=== PATIENT | female | born 1985 | race African-American/Black ===

== ENCOUNTER 2017-06-02 12:22 | Emergency (ER) | payer BC ==
[2017-06-02 12:34] VITALS: BP 137/105
[2017-06-02] MEDS ORDERED: Ondansetron ODT TAB* 4 MG PO ONE (14:09)
[2017-06-02] MEDS ORDERED: Loperamide CAP* 2 MG PO ONE (14:10)
--- NOTE | 2017-06-02 14:29 | UC ---
Nausea/Vomiting/Diarrhea HPI - HPI Summary HPI Summary: This is a 32 yo female with h/o migraines and anxiety who presented with c/o n/v /d, heavy menstrual bleeding and abd cramping. She has had a migraine for several weeks that started when a new tenant in her complex moved in and started smoking marajuana that has filled her apartment regularly. This am she started with abd cramping, n/v/d. She had some stool incontinence. She had heavy menstrual bleeding associated with the acute symptoms this am. No fevers. - History of Current Complaint Hx Last Menstrual Period: 02/21/16 <Joseph Rogers - Last Filed: 06/02/17 14:24> <Lauren Hill - Last Filed: 06/02/17 14:37> - History of Current Complaint Chief Complaint: UCGI Stated Complaint: ABDOMINAL PAIN - Allergies/Home Medications Allergies/Adverse Reactions: Allergies Allergy/AdvReac Type Severity Reaction Status Date / Time Adhesive Tape [Paper Tape] AdvReac Rash Verified 03/31/16 14:33 METALS Allergy Mild See Comment Uncoded 03/31/16 14:33 SEASONAL Allergy Mild Congestion Uncoded 03/31/16 14:33 Home Medications: Home Medications Citalopram TAB* [Celexa TAB*] 20 mg PO DAILY 06/02/17 [History Confirmed ] hydrOXYzine HCL TAB* [Atarax 10 MG TAB*] 10 mg PO BEDTIME 06/02/17 [History Confirmed 06/02/17] PMH/Surg Hx/FS Hx/Imm Hx Previously Healthy: No - anxiety, obesity, migraine HAs Other History Of: Negative For: Anticoagulant Therapy - Surgical History Surgical History: Yes Surgery Procedure, Year, and Place: T&A, wisdom teeth, hand surgery - Family History Known Family History: Positive: Hypertension, Diabetes - Social History Alcohol Use: Rare Substance Use Type: None Smoking Status (MU): Never Smoked Tobacco - Immunization History Most Recent Influenza Vaccination: 2012 Most Recent Tetanus Shot: UTD <Joseph Rogers - Last Filed: 06/02/17 14:24> Review of Systems Constitutional: Negative Skin: Negative Eyes: Negative ENT: Negative Respiratory: Negative Cardiovascular: Negative Gastrointestinal: Abdominal Pain, Vomiting, Diarrhea, Nausea Genitourinary: Negative Motor: Negative Neurovascular: Negative Musculoskeletal: Negative Neurological: Negative Psychological: Negative Is Patient Immunocompromised?: No All Other Systems Reviewed And Are Negative: Yes <Joseph Rogers - Last Filed: 06/02/17 14:24> Physical Exam Triage Information Reviewed: Yes Appearance: Well-Appearing Vital Signs: Initial Vital Signs Temp 96.4 F 06/02/17 12:28 Pulse 86 06/02/17 12:28 Resp 18 06/02/17 12:28 BP 137/105 06/02/17 12:28 Pulse Ox 100 06/02/17 12:28 Vital Signs Reviewed: Yes ENT: Positive: Normal ENT inspection Neck exam: Normal Neck: Positive: Supple, Nontender Respiratory: Positive: Chest non-tender, Lungs clear, Normal breath sounds. Negative: Crackles, Rhonchi, Stridor, Wheezing Cardiovascular Exam: Normal Cardiovascular: Positive: RRR Abdomen Description: Positive: Soft. Negative: Nontender - diffuse TTP Bowel Sounds: Positive: Hypoactive Musculoskeletal Exam: Normal Neurological Exam: Normal Psychological Exam: Normal Skin Exam: Normal <Joseph Rogers - Last Filed: 06/02/17 14:24> Vital Signs: Initial Vital Signs Temp 96.4 F 06/02/17 12:28 Pulse 86 06/02/17 12:28 Resp 18 06/02/17 12:28 BP 137/105 06/02/17 12:28 Pulse Ox 100 06/02/17 12:28 <Lauren Hill - Last Filed: 06/02/17 14:37> Naus/Vom/Diarrhea Course/Dx - Course Course Of Treatment: This is a 32 yo female with h/o migraines who presents with c/o persistent migraine, abd cramping, n/v/d. Exam is non-focal. Migraine is related to marajuana smoke exposure and she is working with her landlord on that. The remainder of her symptoms are likely due an acute gastroenteritis. Recommend symptomatic care. - Differential Dx/Diagnosis Differential Diagnoses - Female: Ovarian Cyst, Gastroenteritis (Viral), Colitis Provider Diagnoses: 1. Acute gastroenteritis. 2. Migraine headache <Joseph Rogers - Last Filed: 06/02/17 14:24> <Lauren Hill - Last Filed: 06/02/17 14:37> - Differential Dx/Diagnosis Condition At Discharge: Stable Discharge <Joseph Rogers - Last Filed: 06/02/17 14:24> <Lauren Hill - Last Filed: 06/02/17 14:37> - Discharge Plan Condition: Stable Disposition: HOME Prescriptions: Ondansetron ODT TAB* [Zofran 4 MG Odt TAB*] 4 mg PO Q4H PRN #30 tab.odt PRN Reason: Nausea Patient Education Materials: Migraine Headache (ED), Gastroenteritis (ED) Referrals: Antonia Franklin MD [Primary Care Provider] - 3 Days Additional Instructions: Instructions: 1. Use nausea medication (Zofran) as needed for nausea 2. Follow up with your PCP in the next 3 days if necessary, please proceed to the ER if your symptoms get significantly worse over the next 24-48 hours Attestation Statement User Type: Provider - I was available for consult. This patient was seen by the MISAEL. The patient was not presented to, seen by, or examined by me. -Brandee <Lauren Hill - Last Filed: 06/02/17 14:37>
== END 2017-06-02 14:26 | disposition home or self-care (01) ==
LOC: EDSEX → UCEAST 12:22 → MERGE 12:22 → UCEAST 14:26
DX: G43.909 Migraine, unspecified, not intractable, without status migrainosus (principal); K52.9 Noninfective gastroenteritis and colitis, unspecified; F41.9 Anxiety disorder, unspecified
CPT/HCPCS: 99202; G0463

== ENCOUNTER 2017-11-30 16:53 | Emergency (ER) | payer BC ==
[2017-11-30] MEDS ORDERED: Ketorolac INJ* 30 MG/ML 1 ML VIAL IM ONE (17:18)
[2017-11-30] MEDS ORDERED: Ondansetron ODT TAB* 4 MG PO ONE (17:24)
--- NOTE | 2017-11-30 18:28 | RAD ---
INDICATION: Left rib injury COMPARISON: None TECHNIQUE: Multiple views of the ribs were obtained. FINDINGS: Bones: There is no evidence of acute rib fracture. LUNGS: The lungs are clear. There is no pneumothorax. Pleural spaces: There is no evidence of hemothorax. Other: None IMPRESSION: NEGATIVE EXAMINATION.
--- NOTE | 2017-11-30 18:28 | RAD ---
INDICATION: Left shoulder pain COMPARISON: None TECHNIQUE: Routine views obtained. FINDINGS: The bony structures, joint spaces, and soft tissues are normal for age. IMPRESSION: NEGATIVE EXAMINATION.
--- NOTE | 2017-11-30 18:29 | RAD ---
INDICATION: Left humerus injury COMPARISON: None TECHNIQUE: AP and lateral views were obtained. FINDINGS: The bony structures, joint spaces, and soft tissues are normal for age. IMPRESSION: NEGATIVE EXAMINATION.
--- NOTE | 2017-11-30 18:29 | RAD ---
INDICATION: Left elbow injury COMPARISON: None TECHNIQUE: AP, lateral, and oblique views were obtained. FINDINGS: The bony structures, joint spaces, and soft tissues are normal for age. IMPRESSION: NEGATIVE EXAMINATION.
--- NOTE | 2017-11-30 18:34 | ED ---
Adult Trauma - HPI Summary HPI Summary: 32 female presents with left side pain after fall 3 days ago. She states she slipped and landed on her left side. She denies any loss consciousness. She denies any head injury. She notes left-sided neck pain. She has pain from her left shoulder to her left elbow with ecchymosis. She also admits to left hip pain. She has been able to ambulate. She also admits to left-sided rib pain. She denies any chest pain but admits to shortness of breath when she takes a deep breath. She denies any bowel pain. She's not seeing any blood in her stool. She denies any midline tenderness of her back. She admits to left- sided back pain. She states it feels like a stiffness. She denies any loss of bowel or bladder. She denies any saddle anesthesia. She has been taking Tylenol and Excedrin for pain. She denies any numbness or tingling. - History of Current Complaint Chief Complaint: EDGeneral Stated Complaint: DIFF. BREATHING/FALL Time Seen by Provider: 11/30/17 17:12 Hx Last Menstrual Period: 02/21/16 Pain Intensity: 8 - Allergy/Home Medications Allergies/Adverse Reactions: Allergies Allergy/AdvReac Type Severity Reaction Status Date / Time Adhesive Tape [Paper Tape] AdvReac Rash Verified 11/30/17 16:59 METALS Allergy Mild See Comment Uncoded 11/30/17 16:59 SEASONAL Allergy Mild Congestion Uncoded 11/30/17 16:59 PMH/Surg Hx/FS Hx/Imm Hx Endocrine/Hematology History: Denies: Hx Anticoagulant Therapy, Hx Diabetes, Hx Thyroid Disease Cardiovascular History: Denies: Hx Hypertension, Hx Pacemaker/ICD Respiratory History: Denies: Hx Asthma, Hx Chronic Obstructive Pulmonary Disease (COPD) GI History: Reports: Other GI Disorders - SEE BELOW Denies: Hx Ulcer History: Denies: Hx Renal Disease Musculoskeletal History: Reports: Hx Scoliosis, Hx Tendonitis - BILAT. TENDONITIS-ACHELIES, Other Musculoskeletal History - MUSCLE PAIN IN UPPER BACK, SHOULDERS & NECK Sensory History: Reports: Hx Contacts or Glasses - GLASSES ON OCCASION Denies: Hx Hearing Aid Opthamlomology History: Reports: Hx Contacts or Glasses - GLASSES ON OCCASION Neurological History: Reports: Hx Headaches, Hx Migraine - CHRONIC HEADACHES Comment Only: Other Neuro Impairments/Disorders - HAS SEEN DR. DAO FOR HEADACHES/HAS BEEN TO PAIN CLINIC-DR. ALFORD Psychiatric History: Reports: Hx Anxiety - ON NO MEDICATION CURRENTLY-BUT HAS BEEN IN THE PAST, Hx Depression - ON NO MEDICATION CURRENTLY-BUT HAS BEEN IN THE PAST Denies: Hx Panic Disorder - Surgical History Surgery Procedure, Year, and Place: T&A, wisdom teeth, hand surgery Hx Anesthesia Reactions: No Infectious Disease History: No Infectious Disease History: Denies: Hx Clostridium Difficile, Hx Hepatitis, Hx Human Immunodeficiency Virus (HIV), Hx of Known/Suspected MRSA, Hx Shingles, Hx Tuberculosis, Hx Known/ Suspected VRE, Hx Known/Suspected VRSA, History Other Infectious Disease, Traveled Outside the [place] in Last 30 Days - Family History Known Family History: Positive: Hypertension, Diabetes - Social History Alcohol Use: Occasionally Hx Substance Use: No Substance Use Type: Reports: None Hx Tobacco Use: No Smoking Status (MU): Never Smoked Tobacco Review of Systems Negative: Fever Negative: Chest Pain Negative: Shortness Of Breath Positive: Myalgia - left hip, neck, rib, arm pain All Other Systems Reviewed And Are Negative: Yes Physical Exam Triage Information Reviewed: Yes Vital Signs On Initial Exam: Initial Vitals Temp Pulse Resp BP Pulse Ox 96.5 F 95 20 145/106 99 11/30/17 16:59 11/30/17 16:59 11/30/17 16:59 11/30/17 16:59 11/30/17 16:59 Vital Signs Reviewed: Yes Appearance: Positive: Well-Appearing Skin: Positive: Warm, Dry Head/Face: Positive: Normal Head/Face Inspection Eyes: Positive: Normal, Conjunctiva Clear ENT: Positive: Pharynx normal Neck: Positive: Other: - No midline tenderness neck, tenderness over left side of back Respiratory/Lung Sounds: Positive: Clear to Auscultation, Breath Sounds Present , Other - Tenderness over left lateral ribs 8 through 10 Cardiovascular: Positive: Normal, RRR Abdomen Description: Positive: Nontender, Soft Bowel Sounds: Positive: Present Musculoskeletal: Positive: Strength/ROM Intact, Other - Left arm ecchymosis over left humerus, tenderness over left shoulder and left elbow. Good pulses, capillary refill less than 2 seconds good well blower strength Neurological: Positive: Normal Psychiatric: Positive: Normal Diagnostics - Vital Signs Vital Signs Temp Pulse Resp BP Pulse Ox 11/30/17 16:59 96.5 F 95 20 145/106 99 - Laboratory Lab Statement: Any lab studies that have been ordered have been reviewed, and results considered in the medical decision making process. - Radiology ribs Xray Interpretation: No Acute Changes Radiology Interpretation Completed By: Radiologist left arm Xray Interpretation: No Acute Changes Radiology Interpretation Completed By: Radiologist Adult Trauma Course/Dx - Course Course Of Treatment: 32 female presents with left side pain after fall 3 days ago. She states she slipped and landed on her left side. She denies any loss consciousness. She denies any head injury. She notes left-sided neck pain. She has pain from her left shoulder to her left elbow with ecchymosis. She also admits to left hip pain. She has been able to ambulate. She also admits to left-sided rib pain. She denies any chest pain but admits to shortness of breath when she takes a deep breath. She denies any bowel pain. She's not seeing any blood in her stool. She denies any midline tenderness of her back. She admits to left-sided back pain. She states it feels like a stiffness. She denies any loss of bowel or bladder. She denies any saddle anesthesia. She has been taking Tylenol and Excedrin for pain. She denies any numbness or tingling. On exam has ecchymosis of the left humerus. Neurovascularly intact. No midline tenderness neck. Full range of motion of hip. Able to ambulate. X-ray arm normal. Tenderness over lateral left ribs. X-ray ribs normal. We will treat with Flexeril for the back shoulder pain. We'll have follow-up with primary. Patient understands agrees with plan. - Diagnoses Differential Diagnosis/HQI/PQRI: Positive: Contusion(s), Fracture, Sprain Provider Diagnoses: Left arm pain, Fall, Rib pain on left side Discharge - Sign-Out/Discharge Documenting (check all that apply): Discharge/Admit/Transfer - Discharge Plan Condition: Good Disposition: HOME Prescriptions: Cyclobenzaprine TAB* [Flexeril 10 MG TAB*] 10 mg PO TID PRN #9 tab PRN Reason: Pain Ondansetron ODT TAB* [Zofran 4 MG Odt TAB*] 4 mg PO Q6H PRN #12 tab.odt PRN Reason: Nausea Patient Education Materials: R.I.C.E. Treatment (ED), Rib Contusion (ED) Forms: *Work Release Referrals: Antonia Franklin MD [Primary Care Provider] - Additional Instructions: Take Tylenol or ibuprofen every 6 hours as needed for pain Take muscle relaxer three times a day for pain Take zofran every 6 hours as needed for nausea Apply ice, rest, elevate Follow up with primary care physician within 5 days Return to ED if develop any new or worsening symptoms - Billing Disposition and Condition Condition: GOOD Disposition: HOME
[2017-11-30 18:51] VITALS: BP 146/93
== END 2017-11-30 18:50 | disposition home or self-care (01) ==
LOC: ED 16:53
DX: M25.512 Pain in left shoulder (principal); M25.522 Pain in left elbow; M25.552 Pain in left hip; R07.81 Pleurodynia; R06.02 Shortness of breath; G43.909 Migraine, unspecified, not intractable, without status migrainosus; F41.9 Anxiety disorder, unspecified; F32.9 Major depressive disorder, single episode, unspecified; Z91.048 Other nonmedicinal substance allergy status
CPT/HCPCS: 96372; 99282; A9270-GY; J1885

== ENCOUNTER 2018-04-15 16:57 | Emergency (ER) | payer BC ==
[2018-04-15] MEDS ORDERED: Ibuprofen TAB* 600 MG PO ONE (20:06)
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
[2018-04-15 22:14] VITALS: BP 0/0
--- NOTE | 2018-04-16 07:56 | RAD ---
Indication: Right ankle injury. 3 views of the right ankle demonstrate soft tissue swelling. No fracture or dislocation is noted. Ankle mortise is intact. Inferior calcaneal spurring is noted. IMPRESSION: Soft tissue swelling without fracture. R0
--- NOTE | 2018-04-16 07:57 | RAD ---
Indication: Right knee pain. 4 views of the right knee demonstrate no fracture. Soft tissue swelling is noted. Joint spaces all well-preserved. No fracture is identified. IMPRESSION: No fracture of the right knee is noted.
--- NOTE | 2018-04-16 07:59 | RAD ---
INDICATION: Right hip injury. COMPARISON: There are no relevant prior studies available for comparison. TECHNIQUE: An AP view of the pelvis and frontal and lateral views of the right hip were obtained. FINDINGS: The bones are in normal alignment. No fracture is seen. Joint spaces appear maintained. There is a T-shaped IUD which projects over the midline in the pelvis. IMPRESSION: NO EVIDENCE FOR FRACTURE, IF THE PATIENT'S SYMPTOMS PERSIST RECOMMEND FOLLOW-UP IMAGING. R0
== END 2018-04-15 20:30 | disposition home or self-care (01) ==
LOC: ED 16:57
DX: M25.511 Pain in right shoulder (principal); M25.571 Pain in right ankle and joints of right foot; Z91.81 History of falling
CPT/HCPCS: 99282; A9270-GY

== ENCOUNTER 2019-06-27 05:59 | Emergency (ER) | payer BC, OTHER ==
[2019-06-27] MEDS ORDERED: Levalbuterol 1.25MG/0.5ML NEB INH ONE (07:32)
--- NOTE | 2019-06-27 09:35 | ED ---
Shortness of Breath - HPI Summary HPI Summary: This patient is a 34-year-old female with a history of asthma presenting to the ED with a 3 day history of cough with production which she describes as "brown and red." She also is complaining of shortness of breath. She does have a history of asthma, however states only has asthma-like symptoms when she becomes sick. She does have an albuterol inhaler at home, however states this gets her heart palpitations and she does not like to use it. Denies fevers, sweats or chills. Endorses diarrhea x 2 days, but denies currently. Denies other symptoms. - History of Current Complaint Chief Complaint: EDShortnessOfBreath Time Seen by Provider: 06/27/19 07:16 Hx Obtained From: Patient Onset/Duration: Sudden Onset Timing: Constant Current Severity: Mild Dyspnea At: Exertion Alleviating Factors: Bronchodilators, Oxygen Associated Signs & Symptoms: Cough (Productive) - Risk Factors Pulmonary Embolism: Negative Cardiac: Negative Pseudomonas: Negative Tuberculosis: Negative - Allergy/Home Medications Allergies/Adverse Reactions: Allergies Allergy/AdvReac Type Severity Reaction Status Date / Time Adhesive Tape [Paper Tape] AdvReac Rash Verified 06/27/19 06:03 METALS Allergy Mild See Comment Uncoded 06/27/19 06:03 SEASONAL Allergy Mild Congestion Uncoded 06/27/19 06:03 Home Medications: Home Medications ALPRAZolam TAB* [Xanax TAB*] 0.25 mg PO Q8H PRN 06/27/19 [History Confirmed 04/07] Albuterol HFA INHALER* [Ventolin HFA Inhaler*] 2 puff INH Q4H PRN 06/27/19 [ History Confirmed 06/27/19] Citalopram TAB* [CeleXA TAB*] 20 mg PO DAILY 06/27/19 [History Confirmed ] Ibuprofen TAB* [Advil TAB*] 200 mg PO Q6H PRN 06/27/19 [History Confirmed ] Levonorgestrel (IUD) (NF) [Mirena (NF)] 20 mcg IU ONCE 06/27/19 [History Confirmed 06/27/19] PMH/Surg Hx/FS Hx/Imm Hx Previously Healthy: Yes Endocrine/Hematology History: Denies: Hx Anticoagulant Therapy, Hx Diabetes, Hx Thyroid Disease Cardiovascular History: Denies: Hx Hypertension, Hx Pacemaker/ICD Respiratory History: Reports: Hx Asthma Denies: Hx Chronic Obstructive Pulmonary Disease (COPD) GI History: Reports: Other GI Disorders - SEE BELOW Denies: Hx Ulcer History: Denies: Hx Renal Disease Musculoskeletal History: Reports: Hx Scoliosis, Hx Tendonitis - BILAT. TENDONITIS-ACHELIES, Other Musculoskeletal History - MUSCLE PAIN IN UPPER BACK, SHOULDERS & NECK Sensory History: Reports: Hx Contacts or Glasses - GLASSES ON OCCASION Denies: Hx Hearing Aid Opthamlomology History: Reports: Hx Contacts or Glasses - GLASSES ON OCCASION Neurological History: Reports: Hx Headaches, Hx Migraine - CHRONIC HEADACHES Comment Only: Other Neuro Impairments/Disorders - HAS SEEN DR. DAO FOR HEADACHES/HAS BEEN TO PAIN CLINIC-DR. ALFORD Psychiatric History: Reports: Hx Anxiety - ON NO MEDICATION CURRENTLY-BUT HAS BEEN IN THE PAST, Hx Depression - ON NO MEDICATION CURRENTLY-BUT HAS BEEN IN THE PAST Denies: Hx Panic Disorder - Surgical History Surgery Procedure, Year, and Place: T&A, wisdom teeth, hand surgery Hx Anesthesia Reactions: No - Immunization History Hx Pertussis Vaccination: No Immunizations Up to Date: Yes Infectious Disease History: No Infectious Disease History: Denies: Hx Clostridium Difficile, Hx Hepatitis, Hx Human Immunodeficiency Virus (HIV), Hx of Known/Suspected MRSA, Hx Shingles, Hx Tuberculosis, Hx Known/ Suspected VRE, Hx Known/Suspected VRSA, History Other Infectious Disease, Traveled Outside the [place] in Last 30 Days - Family History Known Family History: Positive: Hypertension, Diabetes - Social History Alcohol Use: Occasionally Hx Substance Use: No Substance Use Type: Reports: None Hx Tobacco Use: No Smoking Status (MU): Never Smoked Tobacco Review of Systems Negative: Fever, Chills, Fatigue, Skin Diaphoresis Negative: Palpitations, Chest Pain Negative: Shortness Of Breath, Cough Genitourinary: Negative Positive: no symptoms reported, see HPI Negative: Arthralgia, Myalgia Neurological: Negative All Other Systems Reviewed And Are Negative: Yes Physical Exam Triage Information Reviewed: Yes Vital Signs On Initial Exam: Initial Vitals Temp Pulse Resp BP Pulse Ox 97.5 F 104 18 152/102 98 06/27/19 06:01 06/27/19 06:01 06/27/19 06:01 06/27/19 06:01 06/27/19 06:01 Vital Signs Reviewed: Yes Appearance: Positive: Well-Appearing, Well-Nourished Skin: Positive: Warm, Skin Color Reflects Adequate Perfusion Head/Face: Positive: Normal Head/Face Inspection Eyes: Positive: EOMI, CARRIE, Conjunctiva Clear ENT: Positive: Pharynx normal, TMs normal Neck: Positive: Supple, No Lymphadenopathy Respiratory/Lung Sounds: Positive: Decreased Breath Sounds Cardiovascular: Positive: Pulses are Symmetrical in both Upper and Lower Extremities Musculoskeletal: Positive: Strength/ROM Intact Psychiatric: Positive: Normal, Affect/Mood Appropriate AVPU Assessment: Alert Procedures - Sedation Patient Received Moderate/Deep Sedation with Procedure: No Diagnostics - Vital Signs Vital Signs Temp Pulse Resp BP Pulse Ox 06/27/19 09:08 86 20 99 06/27/19 09:05 85 129/94 100 06/27/19 09:00 91 98 06/27/19 08:00 92 97 06/27/19 07:34 84 97 06/27/19 06:01 97.5 F 104 18 152/102 98 - Laboratory Lab Statement: Any lab studies that have been ordered have been reviewed, and results considered in the medical decision making process. Course/Dx - Course Course Of Treatment: During this course of treatment, the patient is evaluated for shortness of breath. Patient states she had a cough with congestion as well as diarrhea for the past 3-4 days. Diarrhea has now subsided and now only has a cough with congestion as well as shortness of breath. She does have history of asthma and states she becomes short of breath when she becomes sick or gets bronchitis. No history of pneumonia. Patient is morbidly obese, but denies any other health problems. She has not been taking any medication at home for relief. Symptoms were not acute onset, gradual over the last 3-4 days. Symptoms are worse with exertion and better with rest. No history of DVT or PE. No history of recent travel, leg pain or OCP use. Patient has a cough, however she states this is mild. Denies any fevers, sweats, however has been endorsing some chills over the past 2 days. She does not have an albuterol inhaler at home. She states inhalers or albuterol treatments/ nebulizer treatments make her "jittery" and gives her her palpitations. Decreased breath sounds throughout. RRR. Patient appears well and does not appear to be in acute distress. No pharyngeal erythema. TMs without erythema with positive cone of light. No maxillary sinus tenderness. Vital signs are stable. X-ray obtained which shows no acute cardiopulmonary findings. Discussed treatment options with the patient. Patient is requesting prednisone. She is given prednisone here in the ED and prescribed this. She is also given Xopenex treatment here with good improvement of her symptoms. She is DC'd home with dx of SOB. She is given return precautions. - Diagnoses Differential Diagnosis/HQI/PQRI: Positive: Bronchitis, Pneumonia, Pulmonary Embolism Provider Diagnoses: Shortness of breath Discharge ED - Sign-Out/Discharge Documenting (check all that apply): Patient Departure - Discharge Plan Condition: Stable Disposition: HOME Prescriptions: Levalbuterol HFA INHALER* [Xopenex Hfa Inhaler*] 1 puff INH Q4H PRN #1 mdi PRN Reason: Shortness Of Breath Levalbuterol HFA INHALER* [Xopenex Hfa Inhaler*] 1 puff INH Q4H PRN #1 mdi PRN Reason: Shortness Of Breath predniSONE TAB* [Deltasone TAB*] 50 mg PO DAILY #3 tab Patient Education Materials: Shortness of Breath (ED) Referrals: Antonia Franklin MD [Primary Care Provider] - Additional Instructions: Please return to the ED if you develop any worsening symptoms Albuterol inhaler every 4 hours as needed for shortness of breath Prednisone once daily x 3 days - start this tomorrow morning - Billing Disposition and Condition Condition: STABLE Disposition: Home
[2019-06-27] MEDS ORDERED: predniSONE TAB* 50 MG PO ONE (10:29)
[2019-06-27 11:11] VITALS: BP 131/89
== END 2019-06-27 11:05 | disposition home or self-care (01) ==
LOC: ED 05:59
DX: R06.02 Shortness of breath (principal); F41.9 Anxiety disorder, unspecified; F32.9 Major depressive disorder, single episode, unspecified; Z79.899 Other long term (current) drug therapy
CPT/HCPCS: 71046; 99282; A9270-GY; J7512